=== PATIENT | male | born 1990 | race Caucasian/White ===

== ENCOUNTER 2019-05-01 17:35 | Emergency (ER) | payer OTHER ==
[2019-05-01] MEDS ORDERED: Famotidine/PF 20 mg/2ml Vial ONE (17:45)
[2019-05-01] MEDS ORDERED: diphenhydrAMINE 50 MG/ML VIAL ONE (17:45)
[2019-05-01] MEDS ORDERED: methylPREDNISolone Sod Succ/PF 125 MG/2 ML VIAL ONE (17:45)
== END 2019-05-01 18:40 | disposition home or self-care (01) ==
LOC: NAV ERS 17:35
DX: T63.441A Toxic effect of venom of bees, accidental (unintentional), initial encounter (principal); E78.5 Hyperlipidemia, unspecified; E78.00 Pure hypercholesterolemia, unspecified; F41.9 Anxiety disorder, unspecified; F32.9 Major depressive disorder, single episode, unspecified; F43.10 Post-traumatic stress disorder, unspecified; F17.210 Nicotine dependence, cigarettes, uncomplicated; Z79.899 Other long term (current) drug therapy; Z86.73 Personal history of transient ischemic attack (TIA), and cerebral infarction without residual deficits
CPT/HCPCS: 94760; 96374; 96375; J1200; J2930; S0028